=== PATIENT | female | born 1995 | race Caucasian/White ===

== ENCOUNTER 2019-10-23 14:42 | Inpatient (IN) | payer OTHER ==
[2019-10-23] MEDS ORDERED: Nalbuphine 10 MG/ML Syringe IVPUSH PRN (20:15)
[2019-10-23] MEDS ORDERED: Sodium Chloride 0.9% 10 ML Syringe FLUSH PRN (20:15)
[2019-10-23] MEDS: Misoprostol 25 MCG (1/4 of 100 MCG) Tab VAG SCH (20:41)
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
[2019-10-24] MEDS: Misoprostol 25 MCG (1/4 of 100 MCG) Tab VAG SCH ×2 (00:36→04:56)
[2019-10-24] MEDS ORDERED: diphenhydrAMINE 50 MG/ML SDV IVPUSH PRN ×4 (01:59→18:31)
[2019-10-24] MEDS ORDERED: ePHEDrine 50 MG/ML SDV IVPUSH PRN ×3 (01:59→18:31)
[2019-10-24] MEDS ORDERED: Bupivacaine/fentaNYL/NS 100 ML Bag EPIDUR PRN ×2 (01:59→13:25)
[2019-10-24] MEDS ORDERED: fentaNYL 100 MCG/2 ML SDV EPIDUR PRN ×2 (01:59→12:47)
[2019-10-24] MEDS ORDERED: Misoprostol 25 MCG (1/4 of 100 MCG) Tab ONE (04:32)
[2019-10-24] MEDS: Lactated Ringers 1,000 ML IV SCH ×4 (04:48→13:46)
--- NOTE | 2019-10-24 04:56 | PCM.SN ---
- Free Text/Narrative Note: Cervix 1 cm, 40% effaced, soft, posterior. Vertex -3. Cytotec 50 g placed close to cervical os. Category 1 heart rate. BP 145/82
--- NOTE | 2019-10-24 08:20 | PCM.SN ---
- Free Text/Narrative Note: Cervix is 1 cm dilated and 40% effaced soft posterior vertex presentation minus 2 station, category 1 heart rate. Tucker catheter placed into the cervical os and 55 mL of fluid instilled into the bulb. Gentle traction applied and taped to the thigh. Patient will now be started on Pitocin solution for augmentation of labor.
[2019-10-24] MEDS ORDERED: Oxytocin/Lactated Ringers 20 UNIT/1,000 ML BAG IV SCH (08:30)
--- NOTE | 2019-10-24 11:43 | PCM.SN ---
- Free Text/Narrative Note: Tucker catheter dislodged from cervix. Cervix is 2 cm, 50% effaced, soft, posterior. Amniotomy perfomred at 1135 clear fluid. UAC placed without difficulty. Continue augmentation. Patient considering epidural.
[2019-10-24] MEDS ORDERED: fentaNYL/Bupivacaine/NS 2 MCG-0.125% 250 ML EPIDUR PRN (12:47)
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
[2019-10-24] MEDS ORDERED: Citric Acid/Sodium Citrate Solution 30 ML Cup ONE (14:06)
[2019-10-24] MEDS ORDERED: Metoclopramide 10 MG/2 ML SDV ONE (14:07)
[2019-10-24] MEDS ORDERED: Bupivacaine 0.5% 30 ML SDV ONE (14:14)
[2019-10-24] MEDS ORDERED: Morphine PF 10 MG/10 ML SDV ONE (14:14)
[2019-10-24] MEDS ORDERED: Oxytocin 10 Units/1 ML SDV ONE (14:15)
[2019-10-24] MEDS ORDERED: ceFAZolin 1 GM Vial ONE ×2 (14:37)
[2019-10-24] MEDS ORDERED: Azithromycin 500 MG Vial ONE (14:39)
[2019-10-24] MEDS ORDERED: Sodium Chloride 0.9% 100 ML ONE (14:40)
[2019-10-24] MEDS ORDERED: Ondansetron 4 MG/2 ML SDV ONE (14:50)
[2019-10-24] MEDS ORDERED: Phenylephrine/Normal Saline 100 MCG/ML 10 ML Syringe ONE (15:09)
[2019-10-24] MEDS ORDERED: Lactated Ringers 1,000 ML ONE (15:16)
--- NOTE | 2019-10-24 15:34 | PCM.POSTAN ---
POST ANESTHESIA ASSESSMENT - MENTAL STATUS Mental Status: Alert - VITAL SIGNS Vital Signs: Last Vital Signs 1516 126/87 95 RA 101 19 98.2 Temp 37.1 C 10/23/19 20:15 Pulse 113 H 10/23/19 20:15 Resp 16 10/23/19 20:15 BP 140/96 H 10/23/19 20:15 Pulse Ox 99 10/23/19 20:15 - RESPIRATORY Respiratory Status: Respiratory Rate WNL, Airway Patent, O2 Saturation Stable - CARDIOVASCULAR CV Status: Pulse Rate WNL, Blood Pressure Stable - GASTROINTESTINAL GI Status: No Symptoms - POST OP HYDRATION Hydration Status: Adequate & Stable
[2019-10-24] MEDS ORDERED: Ondansetron 4 MG/2 ML SDV IVPUSH PRN (15:37)
--- NOTE | 2019-10-24 15:43 | PCM.OPNOTE ---
- General Post-Op/Procedure Note Date of Surgery/Procedure: 10/24/19 Operative Procedure(s): Primary low segment transverse 2 layer closure of the uterus Pre Op Diagnosis: 38 weeks plus gestation, preeclampsia, nonreassuring heart rate, intolerance of labor. Post-Op Diagnosis: Same Anesthesia Technique: Epidural Primary Surgeon: Keith Vu Secondary Surgeon: Irineo Delgadillo Anesthesia Provider: Kimmie Rodriguez Card Grader: William Mary (PAS) Card Grader: Eugenio Avila (asst REPULPING SUPERVISOR) Reason Card Grader Was Necessary: Assist in surgery, retraction, decrease comorbidity and mortality. Role of Card Grader: Assist in surgery, retraction, decrease comorbidity and mortality. Fluid Replacement, Intraop: 800 Output, Urine Amount: 25 EBL in mLs: 750 Drain/Tube Comments:: Tucker Complications: None Condition: Good Free Text/Narrative:: Intake & Output 10/24/19 10/24/19 10/24/19 06:59 14:59 22:59 Intake Total 0 Balance 2120 I was called to evaluate patient at 1355 hrs. Arrived in labor and delivery 1406 hrs. Evaluated patient and reviewed heart tones checked cervix and decision was made to proceed with section at 1413 hrs. Patient was transported to the operating room and placed under epidural anesthesia in the supine position with a wedge under the right hip right flank. She received 2 g of Ancef intravenously as well as azithromycin 500 mg IV [address]s in place and functioning prior surgery. Timeout performed. Prepared and draped in a sterile fashion. Adequate level of anesthesia was confirmed patient's was brought to the operating room. Pfannenstiel incision made and carried sharp section to into the anterior fascia peritoneal cavity was entered without difficulty. Bladder flap created pushed caudad. Low segment transverse C- section performed. Male liveborn delivered at 1442 hrs. (29 minutes) Apgars 6/8 weight 3080 g 6 lbs. 13 oz. web software engineer in attendance. Cord blood gases were obtained. Arterial values pH 7.19 CO2 61.6 PO2 12 venous blood gases pH 7.25 mL of 248.4 PO2 of 20. Cord blood was collected from three-vessel cord and placenta was removed manually. The endometrial cavity was inspected. Sponge needle pack asthma count correct times one the uterine incision closed in 2 layers. First layer running locking suture of 0 Monocryl. Second layer horizontal imbricating suture. Additional [id number] at the midportion of the incision and the left angle of the incision for hemostasis. Both tubes and ovaries were normal. Clots were cleaned from the gutters and cul-de-sac uterus placed into the abdominal cavity. Uterine incision reinspected no bleeding. Sponge needle pack asthma sharp count correct 2 and abdominal cavity was closed with #1 PDS for the anterior fascia irrigation was carried out and subcutaneous tissue with saline and 3 interrupted sutures were utilized to approximate the subcutaneous tissue. The skin was closed with Harshad needle 3-0 Monocryl subcuticular suture. Dermabond Preneo applied. Clots were cleaned from the vagina at the end procedure. Patient was transported postanesthesia care unit in satisfactory condition. The blood transfusions were required during surgery not anticipated unless her condition should change.
[2019-10-24] MEDS ORDERED: Witch Hazel Medicated Pads 40/Jar TOP PRN (18:31)
[2019-10-24] MEDS ORDERED: Sodium Chloride 0.9% 10 ML Syringe FLUSH PRN (18:31)
[2019-10-24] MEDS ORDERED: Dextrose 5%-Lactated Ringers 1,000 ML IV SCH (18:31)
[2019-10-24] MEDS ORDERED: Naloxone 0.4 MG/ML SDV IVPUSH PRN (18:31)
[2019-10-24] MEDS ORDERED: Acetaminophen 325 MG Tab PO PRN (18:31)
[2019-10-24] MEDS ORDERED: Ondansetron 4 MG/2 ML SDV IV PRN (18:31)
[2019-10-24] MEDS ORDERED: Acetaminophen/oxyCODONE 325-5 MG Tab PO PRN ×2 (18:31)
[2019-10-24] MEDS: Simethicone 80 MG Tab.Chew PO SCH ×2 (19:54→23:27)
[2019-10-24] MEDS: Ibuprofen 600 MG Tab PO PRN (19:54)
[2019-10-25] MEDS: Ibuprofen 600 MG Tab PO PRN ×3 (05:05→17:52)
--- NOTE | 2019-10-25 07:07 | PCM48HPAN ---
Post Anesthesia Note - EVALUATION WITHIN 48HRS OF ANESTHETIC Vital Signs in Normal Range: Yes Patient Participated in Evaluation: Yes Respiratory Function Stable: Yes Airway Patent: Yes Cardiovascular Function Stable: Yes Hydration Status Stable: Yes Pain Control Satisfactory: Yes Nausea and Vomiting Control Satisfactory: Yes Mental Status Recovered: Yes Vital Signs: Last Vital Signs Temp 36.8 C 10/25/19 05:00 Pulse 102 H 10/25/19 05:00 Resp 16 10/25/19 05:00 BP 138/45 L 10/25/19 05:00 Pulse Ox 94 L 10/25/19 05:00
--- NOTE | 2019-10-25 08:26 | PCM.SN ---
- Free Text/Narrative Note: Blood pressure 109/67 when seen on rounds. Chest is clear. Uterus is involuting normally. Incision appears normal. No heavy vaginal bleeding. No leg cramping. Patient has ambulated without difficulty. Tucker remains in at present time with 200 mL of output since about 5:00 this morning. She is stable and doing well. Repeat CBC in a.m. drop in hemoglobin noted from preop'd postop status. She is asymptomatic we will withhold blood transfusion for now.
[2019-10-25] MEDS: buPROPion 150 MG Tab.ER PO SCH (11:42)
[2019-10-25] MEDS: Simethicone 80 MG Tab.Chew PO SCH ×4 (11:42→17:51)
[2019-10-25] MEDS: Pantoprazole 40 MG Tab.CR PO SCH (11:43)
[2019-10-25] MEDS: Docusate Sodium 100 MG Cap PO PRN (17:51)
[2019-10-26] MEDS: Ibuprofen 600 MG Tab PO PRN ×3 (01:14→12:53)
[2019-10-26] MEDS: Simethicone 80 MG Tab.Chew PO SCH ×3 (01:21→12:52)
[2019-10-26] MEDS: Pantoprazole 40 MG Tab.CR PO SCH (07:56)
[2019-10-26] MEDS: Docusate Sodium 100 MG Cap PO PRN (08:25)
[2019-10-26] MEDS: buPROPion 150 MG Tab.ER PO SCH (08:25)
--- NOTE | 2019-10-26 08:25 | PCM.DCSUM1 ---
Discharge Summary - Hospital Course Free Text/Narrative:: [facility] Post-Op/Procedure Note Patient Name: MICK MOYA Date of : 89 Patient Status: Inpatient Attending Provider: Keith Vu Date: 10/24/19 15:35 Initialization Date: 10/24/19 15:35 - General Post-Op/Procedure Note Date of Surgery/Procedure: 10/24/19 Operative Procedure(s): Primary low segment transverse 2 layer closure of the uterus Pre Op Diagnosis: 38 weeks plus gestation, preeclampsia, nonreassuring heart rate, intolerance of labor. Post-Op Diagnosis: Same Anesthesia Technique: Epidural Primary Surgeon: Keith Vu Secondary Surgeon: Irineo Delgadillo Anesthesia Provider: Kimmie Rodriguez Trench Digger Helper: William Mary (PAS) Trench Digger Helper: Eugenio Avila (asst CHILD CARE CENTRE MANAGER) Reason Trench Digger Helper Was Necessary: Assist in surgery, retraction, decrease comorbidity and mortality. Role of Trench Digger Helper: Assist in surgery, retraction, decrease comorbidity and mortality. Fluid Replacement, Intraop: 800 Output, Urine Amount: 25 EBL in mLs: 750 Drain/Tube Comments:: Tucker Complications: None Condition: Good Free Text/Narrative:: Intake & Output 10/24/19 10/24/19 10/24/19 06:59 14:59 22:59 Intake Total 2120 Balance 2120 I was called to evaluate patient at 1355 hrs. Arrived in labor and delivery 1406 hrs. Evaluated patient and reviewed heart tones checked cervix and decision was made to proceed with section at 1413 hrs. Patient was transported to the operating room and placed under epidural anesthesia in the supine position with a wedge under the right hip right flank. She received 2 g of Ancef intravenously as well as azithromycin 500 mg IV S[address]s in place and functioning prior surgery. Timeout performed. Prepared and draped in a sterile fashion. Adequate level of anesthesia was confirmed patient's was brought to the operating room. Pfannenstiel incision made and carried sharp section to into the anterior fascia peritoneal cavity was entered without difficulty. Bladder flap created pushed caudad. Low segment transverse C- section performed. Male liveborn delivered at 1442 hrs. (29 minutes) Apgars 6/8 weight 3080 g 6 lbs. 13 oz. 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 Cord blood gases were obtained. Arterial values pH 7.19 CO2 61.6 PO2 12 venous blood gases pH 7.25 mL of 248.4 PO2 of 20. Cord blood was collected from three-vessel cord and placenta was removed manually. The endometrial cavity was inspected. Sponge needle pack asthma count correct times one the uterine incision closed in 2 layers. First layer running locking suture of 0 Monocryl. Second layer horizontal imbricating suture. Additional [id number] at the midportion of the incision and the left angle of the incision for hemostasis. Both tubes and ovaries were normal. Clots were cleaned from the gutters and cul-de-sac uterus placed into the abdominal cavity. Uterine incision reinspected no bleeding. Sponge needle pack asthma sharp count correct 2 and abdominal cavity was closed with #1 PDS for the anterior fascia irrigation was carried out and subcutaneous tissue with saline and 3 interrupted sutures were utilized to approximate the subcutaneous tissue. The skin was closed with Harshad needle 3-0 Monocryl subcuticular suture. Dermabond Preneo applied. Clots were cleaned from the vagina at the end procedure. Patient was transported postanesthesia care unit in satisfactory condition. The blood transfusions were required during surgery not anticipated unless her condition should change. HPI Initial Comments: [facility] Post-Op/Procedure Note Patient Name: MICK MOYA Date of : 89 Patient Status: Inpatient Attending Provider: Keith Vu Date: 10/24/19 15:35 Initialization Date: 10/24/19 15:35 - General Post-Op/Procedure Note Date of Surgery/Procedure: 10/24/19 Operative Procedure(s): Primary low segment transverse 2 layer closure of the uterus Pre Op Diagnosis: 38 weeks plus gestation, preeclampsia, nonreassuring heart rate, intolerance of labor. Post-Op Diagnosis: Same Anesthesia Technique: Epidural Primary Surgeon: Keith Vu Secondary Surgeon: Irineo Delgadillo Anesthesia Provider: Kimmie Rodriguez Trench Digger Helper: William Mary (PAS) Trench Digger Helper: Eugenio Avila (asst CHILD CARE CENTRE MANAGER) Reason Trench Digger Helper Was Necessary: Assist in surgery, retraction, decrease comorbidity and mortality. Role of Trench Digger Helper: Assist in surgery, retraction, decrease comorbidity and mortality. Fluid Replacement, Intraop: 800 Output, Urine Amount: 25 EBL in mLs: 750 Drain/Tube Comments:: Tucker Complications: None Condition: Good Free Text/Narrative:: Intake & Output 10/24/19 10/24/19 10/24/19 06:59 14:59 22:59 Intake Total 0 Balance 2119 I was called to evaluate patient at 1355 hrs. Arrived in labor and delivery 1406 hrs. Evaluated patient and reviewed heart tones checked cervix and decision was made to proceed with section at 1413 hrs. Patient was transported to the operating room and placed under epidural anesthesia in the supine position with a wedge under the right hip right flank. She received 2 g of Ancef intravenously as well as azithromycin 500 mg IV SCDs in place and functioning prior surgery. Timeout performed. Prepared and draped in a sterile fashion. Adequate level of anesthesia was confirmed patient's was brought to the operating room. Pfannenstiel incision made and carried sharp section to into the anterior fascia peritoneal cavity was entered without difficulty. Bladder flap created pushed caudad. Low segment transverse C- section performed. Male liveborn delivered at 1442 hrs. (29 minutes) Apgars 6/8 weight 3080 g 6 lbs. 13 oz. 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 Cord blood gases were obtained. Arterial values pH 7.19 CO2 61.6 PO2 12 venous blood gases pH 7.25 mL of 248.4 PO2 of 20. Cord blood was collected from three-vessel cord and placenta was removed manually. The endometrial cavity was inspected. Sponge needle pack asthma count correct times one the uterine incision closed in 2 layers. First layer running locking suture of 0 Monocryl. Second layer horizontal imbricating suture. Additional [id number] at the midportion of the incision and the left angle of the incision for hemostasis. Both tubes and ovaries were normal. Clots were cleaned from the gutters and cul-de-sac uterus placed into the abdominal cavity. Uterine incision reinspected no bleeding. Sponge needle pack asthma sharp count correct 2 and abdominal cavity was closed with #1 PDS for the anterior fascia irrigation was carried out and subcutaneous tissue with saline and 3 interrupted sutures were utilized to approximate the subcutaneous tissue. The skin was closed with Harshad needle 3-0 Monocryl subcuticular suture. Dermabond Preneo applied. Clots were cleaned from the vagina at the end procedure. Patient was transported postanesthesia care unit in satisfactory condition. The blood transfusions were required during surgery not anticipated unless her condition should change. Brief History: [facility] . Post-Op/Procedure Note. [facility] Record Number: [id number]. Date of : Patient Status: Inpatient. Attending Provider: Keith Vuount Number: [id number]. Date: 10/24/19 15:35Initialization Date: 10/24/19 15:35. - General Post-Op/Procedure Note. Date of Surgery/Procedure: 10/24/19. Operative Procedure(s): Primary low segment transverse 2 layer closure of the uterus. Pre Op Diagnosis: 38 weeks plus gestation, preeclampsia , nonreassuring heart rate, intolerance of labor. Post-Op Diagnosis : Same. Anesthesia Technique: Epidural. Primary Surgeon: Keith Vu. Secondary Surgeon: Irineo Delgadillo. Anesthesia Provider: Kimmie Rodriguez. Trench Digger Helper: William Mary (PAS). Trench Digger Helper: Eugenio Avila (asst CHILD CARE CENTRE MANAGER). Reason Trench Digger Helper Was Necessary: Assist in surgery, retraction, decrease comorbidity and mortality. Role of Trench Digger Helper: Assist in surgery, retraction, decrease comorbidity and mortality. Fluid Replacement, Intraop: 800. Output, Urine Amount: 25. EBL in mLs: 750. Drain/Tube Comments:: Tucker. Complications: None. Condition: Good. Free Text/Narrative:: Intake & Output. 10/24/2000// . 06:[id number]:[id number]. Intake [id number]. [id number]. I was called to evaluate patient at 1355 hrs. Arrived in labor and delivery 1406 hrs. Evaluated patient and reviewed heart tones checked cervix and decision was made to proceed with section at 1413 hrs. Patient was transported to the operating room and placed under epidural anesthesia in the supine position with a wedge under the right hip right flank. She received 2 g of Ancef intravenously as well as azithromycin 500 mg IV SCDs in place and functioning prior surgery. Timeout performed. Prepared and draped in a sterile fashion. Adequate level of anesthesia was confirmed patient's was brought to the operating room. Pfannenstiel incision made and carried sharp section to into the anterior fascia peritoneal cavity was entered without difficulty. Bladder flap created pushed caudad. Low segment transverse performed. Male liveborn delivered at 1442 hrs. (29 minutes) Apgars 6/8 weight 3080 g 6 lbs. 13 oz. 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 Cord blood gases were obtained. Arterial values pH 7.19 CO2 61.6 PO2 12 venous blood gases pH 7.25 mL of 248.4 PO2 of 20. Cord blood was collected from three-vessel cord and placenta was removed manually. The endometrial cavity was inspected. Sponge needle pack asthma count correct times one the uterine incision closed in 2 layers. First layer running locking suture of 0 Monocryl. Second layer horizontal imbricating suture. Additional [id number] at the midportion of the incision and the left angle of the incision for hemostasis. Both tubes and ovaries were normal. Clots were cleaned from the gutters and cul-de-sac uterus placed into the abdominal cavity. Uterine incision reinspected no bleeding. Sponge needle pack asthma sharp count correct 2 and abdominal cavity was closed with #1 PDS for the anterior fascia irrigation was carried out and subcutaneous tissue with saline and 3 interrupted sutures were utilized to approximate the subcutaneous tissue. The skin was closed with Harshad needle 3-0 Monocryl subcuticular suture. Dermabond Preneo applied. Clots were cleaned from the vagina at the end procedure. Patient was transported postanesthesia care unit in satisfactory condition. The blood transfusions were required during surgery not anticipated unless her condition should change. Diagnosis: Stroke: No - Discharge Data Discharge Date: 10/26/19 Discharge Disposition: Home, Self-Care 01 Condition: Good - Referral to Home Health Primary Care Physician: Keith Vu MD - Discharge Diagnosis/Problem(s) (1) 38 weeks gestation of SNOMED Code(s): 58234151 ICD Code: Z3A.38 - 38 WEEKS GESTATION OF Status: Acute Current Visit: Yes (2) Preeclampsia SNOMED Code(s): 570081720 ICD Code: O14.90 - UNSPECIFIED PRE-ECLAMPSIA, UNSPECIFIED TRIMESTER Status : Acute Current Visit: Yes Qualifiers: Trimester: third trimester Qualified Code(s): O14.93 - Unspecified pre- eclampsia, third trimester (3) Anemia, SNOMED Code(s): 010209533 ICD Code: O90.81 - ANEMIA OF THE PUERPERIUM Status: Acute Current Visit: Yes (4) Non-reassuring electronic monitoring tracing SNOMED Code(s): 684641515 ICD Code: O36.8390 - MATERN CARE FOR ABNLT FETL HRT RATE OR RHYM, UNSP TRI, UNSP Status: Acute Current Visit: Yes (5) intolerance to labor, delivered, current hospitalization SNOMED Code(s): 882333805, 144236541 ICD Code: O77.9 - LABOR AND DELIVERY COMPLICATED BY STRESS, UNSPECIFIED Status: Acute Current Visit: Yes - Patient Summary/Data Operative Procedure(s) Performed: Primary low segment transverse 2 layer closure of the uterus Complications: Anemia Will treat with vitamins and iron and vitamin C Consults: None Hospital Course: Uneventful - Patient Instructions Diet: Usual Diet as Tolerated Driving: Do Not Drive (2 weeks) Showering/Bathing: May Shower, No Tub Bathing/Swimming (6 weeks) Wound/Incision Care: Keep Operative Site/Wound Site Clean and Dry Notify Provider of: Fever, Increased Pain, Swelling and Redness, Drainage, Nausea and/or Vomiting - Discharge Plan *PRESCRIPTION DRUG MONITORING PROGRAM REVIEWED*: Not Applicable *COPY OF PRESCRIPTION DRUG MONITORING REPORT IN PATIENT PREET: Not Applicable Prescriptions/Med Rec: Iron,Carbonyl/Ascorbic Acid [Iron 100-Vitamin C Tablet] 1 each PO TID 2 Days # 100 tablet Home Medications: Home Meds [id number]/Iron Fumarate/FA/DSS [ 19 Tablet] 1 tab PO DAILY 10/23/19 [ History] Acetaminophen [Tylenol] 650 mg PO Q6H PRN tablet 10/26/19 [Rx] Docusate Sodium [Colace] 100 mg PO Q12H PRN cap 10/26/19 [Rx] Ibuprofen [Motrin] 600 mg PO Q6H PRN tablet 10/26/19 [Rx] Iron,Carbonyl/Ascorbic Acid [Iron 100-Vitamin C Tablet] 1 each PO TID 2 Days # 100 tablet 10/26/19 [Rx] Simethicone 80 mg PO PCBED tab.chew 10/26/19 [Rx] Referrals: Keith Vu MD [Primary Care Provider] - (She has an appointment to see me in 2 weeks) - Discharge Summary/Plan Comment DC Time >30 min.: No - Patient Data Vitals - Most Recent: Last Vital Signs Temp 98.1 F 10/26/19 03:54 Pulse 118 H 10/26/19 03:54 Resp 18 10/26/19 03:54 BP 124/72 10/26/19 03:54 Pulse Ox 96 10/26/19 03:54 Weight - Most Recent: 221 lb 9 oz I&O - Last 24 hours: Intake & Output 10/25/19 10/26/19 10/26/19 22:59 06:59 14:59 Output Total 700 Balance -700 Lab Results - Last 24 hrs: Laboratory Results - last 24 hr 10/26/19 Range/Units 05:03 WBC 11.60 H (3.98-10.04) K/mm3 RBC 3.24 L (3.98-5.22) M/mm3 Hgb 8.2 L (11.2-15.7) gm/dl Hct 27.3 L (34.1-44.9) % MCV 84.3 (79.4-94.8) fl MCH 25.3 L (25.6-32.2) pg MCHC 30.0 L (32.2-35.5) g/dl RDW Std Deviation 50.4 H (36.4-46.3) fL Plt Count 204 (182-369) K/mm3 MPV 11.6 (9.4-12.3) fl Neut % (Auto) 69.6 (34.0-71.1) % Lymph % (Auto) 20.9 (19.3-51.7) % Bradford % (Auto) 7.1 (4.7-12.5) % Eos % (Auto) 1.5 (0.7-5.8) Baso % (Auto) 0.3 (0.1-1.2) % Neut # (Auto) 8.08 H (1.56-6.13) K/mm3 Lymph # (Auto) 2.43 (1.18-3.74) K/mm3 Bradford # (Auto) 0.82 H (0.24-0.36) K/mm3 Eos # (Auto) 0.17 (0.04-0.36) K/mm3 Baso # (Auto) 0.03 (0.01-0.08) K/mm3 Med Orders - Current: Current Medications Acetaminophen (Tylenol) 650 mg PO Q4H PRN PRN Reason: mild pain or fever Last Admin: 10/25/19 23:05 Dose: 650 mg Bupropion HCl (Wellbutrin Xl) 150 mg PO DAILY [facility] Last Admin: 10/25/19 11:42 Dose: 150 mg Diphenhydramine HCl (Benadryl) 25 mg IVPUSH Q6H PRN PRN Reason: Itching or Nausea Docusate Sodium (Colace) 100 mg PO Q12H PRN PRN Reason: Constipation Last Admin: 10/25/19 17:51 Dose: 100 mg Ephedrine Sulfate (Ephedrine Sulfate) 5 mg IVPUSH SEECOMMENT PRN PRN Reason: Other Ibuprofen (Motrin) 600 mg PO Q6H PRN PRN Reason: mild pain or fever Last Admin: 10/26/19 07:23 Dose: 600 mg Naloxone HCl (Narcan) 0.1 mg IVPUSH SEECOMMENT PRN PRN Reason: Respiratory Depression Ondansetron HCl (Zofran) 4 mg IV Q8H PRN PRN Reason: Nausea/Vomiting Oxycodone/Acetaminophen (Percocet 325-5 Mg) 1 tab PO Q4H PRN PRN Reason: Pain (moderate 4-6) Oxycodone/Acetaminophen (Percocet 325-5 Mg) 2 tab PO Q4H PRN PRN Reason: Pain (severe 7-10) Pantoprazole Sodium (Protonix) 40 mg PO DAILY@0730 [facility] Last Admin: 10/26/19 07:56 Dose: 40 mg Simethicone (Simethicone) 80 mg PO PCBED [facility] Last Admin: 10/26/19 01:21 Dose: Not Given Sodium Chloride (Saline Flush) 10 ml FLUSH ASDIRECTED PRN PRN Reason: Keep Vein Open Witch Lizette (Tucks) 1 pad TOP ASDIRECTED PRN PRN Reason: Perineal Comfort Measure Discontinued Medications Azithromycin (Zithromax) Confirm Administered Dose 500 mg .ROUTE .STK-MED ONE Stop: 10/24/19 14:40 Bupivacaine HCl (Marcaine 0.5%) Confirm Administered Dose 30 ml .ROUTE .STK-MED ONE Stop: 10/24/19 14:15 Last Admin: 10/24/19 14:39 Dose: 20 ml Cefazolin Sodium (Ancef) Confirm Administered Dose 1 gm .ROUTE .[facility]-MED ONE Stop: 10/24/19 14:38 Cefazolin Sodium (Ancef) Confirm Administered Dose 1 gm .ROUTE .[facility] ONE Stop: 10/24/19 14:38 Citric Acid/Sodium Citrate (Bicitra Solution) Confirm Administered Dose 30 ml .ROUTE .[facility] ONE Stop: 10/24/19 14:07 Last Admin: 10/24/19 14:18 Dose: 30 ml Diphenhydramine HCl (Benadryl) 25 mg IVPUSH Q6H PRN PRN Reason: Itching Diphenhydramine HCl (Benadryl) 25 mg IVPUSH Q6H PRN PRN Reason: pruritis Diphenhydramine HCl (Benadryl) 25 mg IVPUSH Q6H PRN PRN Reason: pruritis Ephedrine Sulfate (Ephedrine Sulfate) 5 mg IVPUSH ASDIRECTED PRN PRN Reason: HYPOTENTSION Ephedrine Sulfate (Ephedrine Sulfate) 5 mg IVPUSH ASDIRECTED PRN PRN Reason: Hypotension Fentanyl (Sublimaze) 100 mcg EPIDUR Q3H PRN PRN Reason: Pain Fentanyl (Sublimaze) 100 mcg EPIDUR Q3H PRN PRN Reason: Pain Last Admin: 10/24/19 13:04 Dose: 100 mcg Fentanyl/Bupivacaine HCl (Fentanyl/Bupivacaine/Ns 2 Mcg-0.125% 100 Ml) 100 ml EPIDUR CONTINUOUS PRN PRN Reason: Pain Fentanyl/Bupivacaine HCl (Fentanyl/Bupivacaine/Ns 2 Mcg-0.125% 250 Ml) 250 ml EPIDUR CONTINUOUS PRN PRN Reason: Pain Fentanyl/Bupivacaine HCl (Fentanyl/Bupivacaine/Ns 2 Mcg-0.125% 100 Ml) 100 ml EPIDUR CONTINUOUS PRN PRN Reason: Pain Last Admin: 10/24/19 13:47 Dose: 100 ml Lactated Ringer's (Ringers, Lactated) 1,000 mls @ 100 mls/hr IV ASDIRECTED FAITH Last Admin: 10/24/19 13:46 Dose: 100 mls/hr Oxytocin/Lactated Ringer's (Pitocin In Lr 20 Units/1,000 Ml) 20 unit in 1,000 mls @ 6 mls/hr IV TITRATE FAITH; Protocol Last Admin: 10/24/19 08:44 Dose: 6 mls/hr Sodium Chloride (Normal Saline) Confirm Administered Dose 100 mls @ as directed .ROUTE .[facility]-MED ONE Stop: 10/24/19 14:41 Lactated Ringer's (Ringers, Lactated) Confirm Administered Dose 1,000 mls @ as directed .ROUTE .[facility]-MED ONE Stop: 10/24/19 15:17 Dextrose/Lactated Ringer's (Dextrose 5%-Lactated Ringers) 1,000 mls @ 125 mls/ hr IV ASDIRECTED FAITH Stop: 10/25/19 02:30 Last Admin: 10/24/19 18:50 Dose: 125 mls/hr Metoclopramide HCl (Reglan) Confirm Administered Dose 10 mg .ROUTE .ST-MED ONE Stop: 10/24/19 14:08 Last Admin: 10/24/19 14:18 Dose: 10 mg Misoprostol (Cytotec) 50 mcg VAG Q4HR [facility] Stop: 10/24/19 01:01 Last Admin: 10/24/19 04:56 Dose: 50 mcg Misoprostol (Cytotec) Confirm Administered Dose 50 mcg .ROUTE .[facility] ONE Stop: 10/24/19 04:33 Last Admin: 10/24/19 08:26 Dose: Not Given Morphine Sulfate (Duramorph Pf) Confirm Administered Dose 10 mg .ROUTE .[facility]-MED ONE Stop: 10/24/19 14:15 Nalbuphine HCl (Nubain) 10 mg IVPUSH Q2H PRN PRN Reason: Pain Last Admin: 10/24/19 05:40 Dose: 10 mg Ondansetron HCl (Zofran) Confirm Administered Dose 4 mg .ROUTE .ST-MED ONE Stop: 10/24/19 14:51 Ondansetron HCl (Zofran) 4 mg IVPUSH ONETIME PRN PRN Reason: Nausea/Vomiting Oxytocin (Pitocin) Confirm Administered Dose 20 unit .ROUTE .STK-MED ONE Stop: 10/24/19 14:16 Phenylephrine HCl (Phenylephrine In Ns 100 Mcg/Ml) Confirm Administered Dose 1 mg .ROUTE .ST-MED ONE Stop: 10/24/19 15:10 Sodium Chloride (Saline Flush) 10 ml FLUSH ASDIRECTED PRN PRN Reason: Keep Vein Open
== END 2019-10-26 13:15 | disposition home or self-care (01) | DRG 787 ==
LOC: JD.OB 14:42 → OBSVTOIN 10-24 14:42 → JD.OB 10-24 14:50
PROVIDERS: ADMIT Obstetrics & Gynecology; ATTEND Obstetrics & Gynecology
PROC: 10D00Z1 Extraction of Products of Conception, Low, Open Approach (ICD-10-PCS; principal; 2019-10-24)
PROC: 10907ZC Drainage of Amniotic Fluid, Therapeutic from Products of Conception, Via Natural or Artificial Opening (ICD-10-PCS; 2019-10-24)
PROC: 3E0P7VZ Introduction of Hormone into Female Reproductive, Via Natural or Artificial Opening (ICD-10-PCS; 2019-10-24)
DX: O14.94 Unspecified pre-eclampsia, complicating childbirth (principal); D62 Acute posthemorrhagic anemia; O76 Abnormality in fetal heart rate and rhythm complicating labor and delivery; Z3A.38 38 weeks gestation of pregnancy; Z37.0 Single live birth; Z79.899 Other long term (current) drug therapy; O90.81 Anemia of the puerperium
CPT/HCPCS: 01967; 01968; 36415; 51702; 59025; 59200; 82565; 82570; 83615; 84156; 84450; 84460; 84520; 84550; 85025; 86592; 86850; 86900; 86901; A9270-GY; J0456; J0690; J2270; J2300; J2370; J2405; J2590; J2765; J3010; J3490; J7050; J7120; J7121

== ENCOUNTER 2021-05-07 16:47 | Emergency (ER) | payer BC ==
--- NOTE | 2021-05-07 17:42 | EDM.PDOC ---
ED HPI GENERAL MEDICAL PROBLEM - General Chief Complaint: Cardiovascular Problem Stated Complaint: SOB/HEART PALPITATIONS Time Seen by Provider: 05/07/21 16:53 Source of Information: Reports: Patient History Limitations: Reports: No Limitations - History of Present Illness INITIAL COMMENTS - FREE TEXT/NARRATIVE: 26-year-old female presents the emergency department today with complaints of palpitations and shortness of breath x1 week. Per the patient's report she states that she has been having occasional shortness of breath and palpitations that started about a week ago however she contributed it to family stressors that started at that time. She sees an [facility] in [place] and was seen by her provider today who did a urine dipstick screen which she said was normal. Her provider then called [facility] Dr. Saleh who recommend she be evaluated in the emergency department. Of note, the patient is 27 weeks . She states on her last she was diagnosed with preeclampsia at 34 weeks so she is concerned regarding this. She has not had any recent fever, chills, nausea, vomiting or diarrhea. She does verbalize lower abdominal discomfort. She also verbalizes urinary frequency and scant amount of urine when voiding. She denies any burning with voiding. She also notes that she does have a significant history for anxiety for which she takes Zoloft and was most recently started on BuSpar about 2 weeks ago. She denies any chest pain, headache or upper respiratory symptoms. She states that her thus far has been healthy and she has had no complications. Chest Pain Score (Numeric/FACES): 4 - Related Data Allergies Allergy/AdvReac Type Severity Reaction Status Date / Time No Known Allergies Allergy Verified 05/07/21 17:00 Home Meds: Home Meds Prenat 115/Iron Fum/Folic/Dss [ 19 Tablet] 1 tab PO DAILY 10/23/19 [ History] Aspirin 81 mg PO DAILY 05/07/21 [History] Cetirizine [ZyrTEC] 10 mg PO DAILY 05/07/21 [History] Sertraline [Zoloft] 200 mg PO DAILY 05/07/21 [History] busPIRone [Buspar] 7.5 mg PO BID 05/07/21 [History] hydrOXYzine HCL [hydrOXYzine] 25 mg PO ASDIRECTED PRN 05/07/21 [History] Past Medical History Other Respiratory History: currrent stuffy nose 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 A baller tender arm fell across her chest and and pt states she had back aches in the past. - Past Surgical History HEENT Surgical History: Reports: ALAN Other HEENT Surgeries/Procedures: 2018 Female Surgical History: Reports: Section Social & Family History - Family History Family Medical History: No Pertinent Family History - Tobacco Use Tobacco Use Status *Q: Never Tobacco User Second Hand Smoke Exposure: No - Caffeine Use Caffeine Use: Reports: None - Recreational Drug Use Recreational Drug Use: No ED ROS GENERAL - Review of Systems Review Of Systems: Comprehensive ROS is negative, except as noted in HPI. ED EXAM, GENERAL - Physical Exam Exam: See Below Exam Limited By: No Limitations General Appearance: Alert, WD/WN, Anxious Eye Exam: Bilateral Eye: PERRL Ears: Normal External Exam, Hearing Grossly Normal Nose: Normal Inspection Throat/Mouth: Normal Inspection, Normal Lips, Normal Voice, No Airway Compromise Head: Atraumatic Neck: Normal Inspection, Supple Respiratory/Chest: No Respiratory Distress, Lungs Clear, Normal Breath Sounds, No Accessory Muscle Use, Chest Non-Tender Cardiovascular: Normal Peripheral Pulses, Regular Rate, Rhythm, No Edema, No Murmur Peripheral Pulses: 2+: Radial (L), Radial (R) GI/Abdominal: Normal Bowel Sounds, Soft, Non-Tender. No: No Distention #1 Interpretation EKG Date: 05/07/21 Time: 17:03 Rhythm: NSR Rate (Beats/Min): 96 [place]: Normal P-Wave: Present QRS: Normal ST-T: Normal QT: Normal EKG Interpretation Comments: Per Dr. Galarza interpretation: Sinus rhythm at 96 bpm; borderline short AR interval; borderline repolarization abnormality Course - Vital Signs Text/Narrative:: As stated above 26-year-old female who presents with intermittent palpitations and shortness of breath associated with palpitations. Patient states this has been going on for about a week now. Initially contributed to increased family stressors as she has received some news in the last week or so. At one point in time when she is sitting at work she states her resting heart rate was initially in the 130s and only came down to the 120s. I have ordered an EKG, troponin, CBC, CMP, magnesium level and a TSH level. Nursing will obtain heart tones. We will also obtain a urinalysis with micro and culture if indicated. Last Recorded V/S: Last Vital Signs Temp 97 F 05/07/21 16:57 Pulse 109 H 05/07/21 16:57 Resp 16 05/07/21 16:57 BP 129/81 05/07/21 16:57 Pulse Ox 99 05/07/21 16:57 - Orders/Labs/Meds Orders: Active Orders 24 hr Category Date Time Status EKG 12 Lead [EKG Documentation Completion] [RC] STAT Care 05/07/21 16:53 Active Labs: Laboratory Tests 05/07/21 05/07/21 05/07/21 Range/Units 17:33 17:33 17:37 WBC 13.12 H (3.98-10.04) K/mm3 RBC 4.38 (3.98-5.22) M/mm3 Hgb 10.9 L D (11.2-15.7) gm/dl Hct 34.5 (34.1-44.9) % MCV 78.8 L (79.4-94.8) fl MCH 24.9 L (25.6-32.2) pg MCHC 31.6 L (32.2-35.5) g/dl RDW Std Deviation 42.3 (36.4-46.3) fL Plt Count 333 (182-369) K/mm3 MPV 9.7 (9.4-12.3) fl Neut % (Auto) 65.3 (34.0-71.1) % Lymph % (Auto) 22.9 (19.3-51.7) % [place] % (Auto) 7.2 (4.7-12.5) % Eos % (Auto) 3.4 (0.7-5.8) Baso % (Auto) 0.4 (0.1-1.2) % Neut # (Auto) 8.57 H (1.56-6.13) K/mm3 Lymph # (Auto) 3.01 (1.18-3.74) K/mm3 [place] # (Auto) 0.94 H (0.24-0.36) K/mm3 Eos # (Auto) 0.45 H (0.04-0.36) K/mm3 Baso # (Auto) 0.05 (0.01-0.08) K/mm3 Manual Slide Review Abnormal smear Sodium 139 (136-145) mEq/L Potassium 3.8 (3.5-5.1) mEq/L Chloride 105 (98-107) mEq/L Carbon Dioxide 24 (21-32) mEq/L Anion Gap 13.8 (5-15) BUN 9 (7-18) mg/dL Creatinine 0.6 (0.55-1.02) mg/dL Est Cr Clr Drug Dosing 107.22 mL/min Estimated GFR (MDRD) > 60 (>60) mL/min BUN/Creatinine Ratio 15.0 (14-18) Glucose 81 (70-99) mg/dL Calcium 8.6 (8.5-10.1) mg/dL Magnesium 1.9 (1.8-2.4) mg/dL Total Bilirubin 0.2 (0.2-1.0) mg/dL AST 16 (15-37) U/L ALT 15 (14-59) U/L Alkaline Phosphatase 70 (46-116) U/L Troponin I < 0.017 (0.00-0.056) ng/mL Total Protein 6.8 (6.4-8.2) g/dl Albumin 2.6 L (3.4-5.0) g/dl Globulin 4.2 gm/dL Albumin/Globulin Ratio 0.6 L (1-2) TSH 3rd Generation 1.935 (0.358-3.74) uIU/mL Urine Color Yellow (Yellow) Urine Appearance Clear (Clear) Urine pH 7.0 (5.0-8.0) Ur Specific [place] 1.020 (1.005-1.030) Urine Protein Negative (Negative) Urine Glucose (UA) Negative (Negative) Urine Ketones Negative (Negative) Urine Occult Blood Negative (Negative) Urine Nitrite Negative (Negative) Urine Bilirubin Negative (Negative) Urine Urobilinogen 0.2 (0.2-1.0) Ur Leukocyte Esterase Negative (Negative) - Re-Assessments/Exams Free Text/Narrative Re-Assessment/Exam: 05/07/21 18:45 Hematology reveals a WBC of 13.12 ( normal eleva, tion for ), hemoglobin 10.9, hematocrit 34.5, platelet count 333 Chemistry is unremarkable, magnesium 1.9, TSH 1.935 Urinalysis is unremarkable I did reevaluate the patient and asked her if she has had any pain to her lower extremities that would suggest DVT patient does not describe it as pain however she states she has had weakness in her lower extremities. I have ordered bilateral Doppler ultrasound of lower extremities to rule out DVT. 05/07/21 19:40 Radiologist impression bilateral lower extremity deep venous ultrasound: 1. No findings of deep venous thrombosis are seen within either the right or the left lower extremities. 05/07/21 19:40 Patient will be discharged to home with recommendations that she follow-up with her regular doctor first thing next week. Departure - Departure Time of Disposition: 19:45 Disposition: Home, Self-Care 01 Condition: Good Clinical Impression: Palpitations Instructions: Palpitations, [id number] Referrals: Anshul Saleh MD [Primary Care Provider] - Forms: ED Department Discharge Additional Instructions: You were seen in the emergency department today with complaints of palpitations and shortness of breath for the last week. Labs, EKG and urinalysis were completed and these were all unremarkable. There is no sign of infection. There is no sign of anything wrong with your heart. Ultrasound was completed of your bilateral legs to rule out blood clots and this was negative as well. Recommend that you go home and rest for the weekend. Drink plenty of fluids. Stop drinking caffeine. Follow-up with your regular doctor first thing next week. Should your condition worsen or change, do not hesitate returning to the emergency department. Sepsis Event Note (ED) - Evaluation Sepsis Screening Result: No Definite Risk - Focused Exam Vital Signs: Vital Signs Temp Pulse Resp BP Pulse Ox 05/07/21 16:57 97 F 109 H 16 129/81 99 - My Orders Last 24 Hours: My Active Orders 05/07/21 16:53 EKG 12 Lead [EKG Documentation Completion] [RC] STAT - Assessment/Plan Last 24 Hours: My Active Orders 05/07/21 16:53 EKG 12 Lead [EKG Documentation Completion] [RC] STAT
--- NOTE | 2021-05-07 19:38 | US ---
Bilateral lower extremity deep venous ultrasound: Duplex and color Doppler evaluation was obtained of the right and left common femoral, proximal greater saphenous, superficial femoral, popliteal, posterior tibial and peroneal veins. Comparison: No previous venous imaging is available. Findings: Normal phasic flow, augmentation and compression is seen. Impression: 1. No findings of deep venous thrombosis are seen within either the right or left lower extremities. Diagnostic code #1
== END 2021-05-07 20:03 | disposition home or self-care (01) ==
LOC: JD.ED 16:47
DX: O99.891 Other specified diseases and conditions complicating pregnancy (principal); R00.2 Palpitations; Z79.82 Long term (current) use of aspirin; Z79.899 Other long term (current) drug therapy; Z3A.27 27 weeks gestation of pregnancy
CPT/HCPCS: 36415; 80053; 81003; 83735; 84443; 84484; 85025; 93005; 93010; 93970; 93970-26; 99283; 99285-25

== ENCOUNTER 2021-07-31 00:48 | Inpatient (IN) | payer BC ==
[2021-07-31] MEDS ORDERED: Ondansetron 4 MG/2 ML SDV IVPUSH PRN (11:01)
[2021-07-31] MEDS ORDERED: Sodium Chloride 0.9% 10 ML Syringe FLUSH PRN (11:01)
[2021-07-31] MEDS ORDERED: Lidocaine 1% 50 ML MDV INJECT ONE (11:01)
[2021-07-31] MEDS ORDERED: Nalbuphine 10 MG/1 ML Vial IVPUSH PRN (11:01)
[2021-07-31] MEDS ORDERED: Oxytocin/Lactated Ringers 10 UNIT/1,000 ML BAG IV SCH ×2 (11:15)
[2021-07-31] MEDS: Lactated Ringers 1,000 ML IV SCH ×4 (11:30→16:49)
[2021-07-31] MEDS ORDERED: diphenhydrAMINE 50 MG/ML SDV IVPUSH PRN (12:55)
[2021-07-31] MEDS ORDERED: ePHEDrine 50 MG/ML SDV IVPUSH PRN (12:55)
[2021-07-31] MEDS: fentaNYL 100 MCG/2 ML SDV EPIDUR PRN ×2 (14:18→19:25)
[2021-07-31] MEDS: Bupivacaine/fentaNYL/NS 100 ML Bag EPIDUR PRN ×2 (14:18→21:48)
--- NOTE | 2021-07-31 14:19 | PCM.LDHP ---
L&D History of Present Illness - General Date of Service: 07/31/21 Admit Problem/Dx: Patient Status Order with Admit Dx/Problem 07/31/21 11:02 Patient Status [ADT] Routine Admission Diagnosis/Problem Admission Diagnosis/Problem Labor without complication 07/31/21 14:06 Marilyn is a 26-year-old 2 para 1-0-0-1 female admitted on 07/31/2021 at 39-0/7 weeks gestational age with an NIMO of 08/07/2021 for induction of labor. Source of Information: Patient History Limitations: Reports: No Limitations - History of Present Illness Introduction:: Marilyn is a 26-year-old 2 para 1-0-0-1 female admitted on 07/31/2021 at 39-0/7 weeks gestational age with an NIMO of 08/07/2021 for induction of labor. She has a history of previous section that was done for nonreassuring heart tones at 38 weeks gestational age with last with induction at that time done for preeclampsia. Her scar is a little uterine transverse incision. The procedure, risk, benefits, alternatives of care including a repeat section are all discussed in detail with the patient. She appears to understand and wishes to proceed. Consent for trial of labor after section for an attempt at vaginal after section and consent for possible repeat lower uterine segment transverse section are discussed in detail with patient and are signed by the patient. Preoperative labs have been obtained. She has IV access. She is being near continuously monitored. Anesthesia and surgery partners have been made aware of her presence in L&D. 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 Patient had menarche at approximately age 13. Cycles are fairly regular. She had 1 previous that delivered on 10/24/2019 at 38-2/7 weeks gestational age6 pound 13 ounce male born via primary section under epidural analgesia. indication was intolerance of labor but diagnosis of preeclampsia was also present. Patient denies any STIs. Also denies any abnormal Pap smears. course: Patient was first seen for this on 01/05/2021 at 9-3/7 weeks gestational age. Ultrasound done at that time was consistent with dates. She has had 2 other ultrasounds since that first ultrasound both consistent with her LMP dating. NIMO is set at 08/07/2021. Patient's has been relatively unremarkable. She had regular care. First weight was 190.4 pounds and weight at last visit on 07/22/2021 was 2212.6 pounds. Her vital signs been stable throughout the and there is been no evidence of hypertension. Fundal height growth has been appropriate. Baby has been active. No problems have been noted. She is group B strep negative. Covid vaccine was given on 01/06/2021 and again on 02/03/2021. She has a history of depression but has not had any problems with this . She plans to yomaira [employer]. She is okay with epidural in labor and delivery. Risk factors for the include history of preeclampsia with first , history of C- section, history of anxiety/depression symptoms in the past. Patient had her influenza immunization on 06/18/2021. Tdap given 05/26/2021. She is rubella immune. Hepatitis A position given in 2007. Hepatitis B immunization given in 1994. Meningococcal immunization given in 2011. Laboratory testing: Blood is O+ with a negative antibody screen. First erum hemoglobin was 12.9 g/dL and platelets were 353,000. She is rubella immune. RPR is nonreactive. Urine culture was negative. Hepatitis B surface antigen and HIV assays were both negative. Chlamydia, gonorrhea and hepatitis C antibody evaluations were negative. Second trimester labs showed hemoglobin 10.6 g/dL. At that time patient was advised to start on ferrous sulfate 325 mg p.o. daily. Her platelet count at that time was 328,000. 1 hour GTT was elevated at 151. Her 3-hour glucose tolerance test was normal with fasting blood sugar 91. 1 hour glucose was 205. 2-hour glucose was 138. 3-hour glucose was 130. Group B strep screen was negative. Allergies: None Medications: 1. Vitamin D 50 mcg daily (2000 international units) 2. Baby aspirin 81 mg p.o. daily 3. Sertraline 100 mg - 2 tablets daily for dosage of 200 mg/day 4. vitamins daily 5. Folic acid caps daily 5. BuSpar 15 mg 1 tablet daily 6. Hydroxyzine 50 mg oral tablets as needed for anxiety 7. Ferrous sulfate 325 mg daily Past medical history: 1. Anxiety/depression which is manageable at this time on medications. Past surgical history: 1. LASEK surgery 2. Previous as described above in 2020 Family history: Mother is alive and prediabetic. Father is alive, with diet controlled type 2 diabetes. Also has high cholesterol. Maternal grandfather is at age 92 from diabetes complications. Maternal grandmother is at approximately 30 to 50 years of age from a brain aneurysm. Paternal grandfather secondary Parkinson's.and diabetes. Paternal grandmother secondary to stroke in her late 70s back in 2012. Patient has a half sister and a half brother that are alive and well. The sister however did have thyroid cancer in her early 30s and gestational diabetes but is doing well now. 1 paternal aunt with breast cancer. There is no family history of bleeding, clotting, anesthesia, related problems or unusual reactions to medications. She has no problems with asthma. Social history: Patient is . She lives in [place], [place]. She works at the [employer] in [place], [place]. She does not use any significance alcohol, drugs or tobacco. Her 's name is Saad. Review of systems: In general patient has no complaints. Baby has been active. P she has had no symptoms of hypertension . No signs or symptoms of preeclampsia. Skin: Negative Lungs: No infectious symptoms or shortness of breath Cardiovascular: No chest pain or exercise intolerance Breasts: No lumps, changes in size, pain, dimpling, discharge or axillary or supraclavicular concerns. GI: Negative : Body changes associated with . Musculoskeletal: Negative Neurological: Negative Physical exam: In general the patient is well-developed, well-nourished, pleasant female of stated age in no acute distress. On last evaluation clinic on 08/22/2021 her blood pressure was 123/72. Weight was 212.6 with a first weight of 190.4. heart rate was 139. Skin is warm dry without lesions. HEENT, neck and back within normal limits. Lungs are clear with good breath sounds in all lung haq. Cardiovascular exam shows regular and rhythm without murmurs. Breast exam is deferred at this time having been done at first visit thought to be normal is not repeated at this time. Abdomen is gravid with fundal height on last evaluation clinic at 39+ centimeters. Baby in vertex presentation. Genital per digital exam shows cervix to be 3 cm, 80% effaced, soft, -3, posterior. Cephalic presentation confirmed. Extremities and neurological exam are grossly within normal limits. There is minimal edema noted in bilateral lower extremities - Related Data Allergies/Adverse Reactions: Allergies Allergy/AdvReac Type Severity Reaction Status Date / Time No Known Allergies Allergy Verified 05/07/21 17:00 Home Medications: Home Meds Prenat 115/Iron Fum/Folic/Dss [ 19 Tablet] 1 tab PO DAILY 10/23/19 [History] Sertraline [Zoloft] 100 mg PO DAILY 05/07/21 [History] Cholecalciferol (Vitamin D3) [Vitamin D] 5,000 units PO DAILY 07/31/21 [History] Folic Acid 0.8 mg PO DAILY 07/31/21 [History] Past Medical History - Past Health History Medical/Surgical History: Denies Medical/Surgical History Other Respiratory History: currrent stuffy nose 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 Psychiatric History: Reports: Depression - Past Surgical History HEENT Surgical History: Reports: ALAN Other HEENT Surgeries/Procedures: 2018 Female Surgical History: Reports: Section Social & Family History - Family History Family Medical History: No Pertinent Family History - Tobacco Use Tobacco Use Status *Q: Never Tobacco User - Caffeine Use Caffeine Use: Reports: None - Recreational Drug Use Recreational Drug Use: No H&P Review of Systems - Review of Systems: Review Of Systems: See Below L&D Exam - Exam Exam: See Below - Vital Signs Vital Signs: Last Vital Signs Temp 36.7 C 07/31/21 11:02 Pulse 109 H 07/31/21 11:02 Resp 18 07/31/21 11:02 BP 112/59 L 07/31/21 11:02 Pulse Ox 98 07/31/21 11:02 Weight: 97.069 kg - Patient Data Lab Results Last 24 hrs: Laboratory Results - last 24 hr 07/31/21 07/31/21 07/31/21 Range/Units 10:55 11:20 11:20 WBC 8.60 (3.98-10.04) K/mm3 RBC 5.04 (3.98-5.22) M/mm3 Hgb 13.4 D (11.2-15.7) gm/dl Hct 41.3 (34.1-44.9) % MCV 81.9 D (79.4-94.8) fl MCH 26.6 (25.6-32.2) pg MCHC 32.4 (32.2-35.5) g/dl RDW Std Deviation 52.5 H (36.4-46.3) fL Plt Count 235 D (182-369) K/mm3 MPV 11.1 (9.4-12.3) fl SARS-CoV-2 RNA (ALFREDO) Negative (NEGATIVE) Blood Type O POSITIVE Gel Antibody Screen Negative Result Diagrams: 07/31/21 11:20 - Problem List (1) Previous section SNOMED Code(s): 110233801 ICD Code: Z98.891 - HISTORY OF UTERINE SCAR FROM PREVIOUS SURGERY Status: Acute Current Visit: Yes (2) 39 weeks gestation of SNOMED Code(s): 71782410 ICD Code: Z3A.39 - 39 WEEKS GESTATION OF Status: Acute Current Visit: Yes (3) Depression affecting SNOMED Code(s): 78393047226217 ICD Code: O99.340 - OTH MENTAL DISORDERS COMPLICATING , UNSP TRIMESTER; F32.A - DEPRESSION, UNSPECIFIED Status: Acute Current Visit: Yes Problem List Initiated/Reviewed/Updated: Yes Orders Last 24hrs: Active Orders 24 hr Category Date Time Status Patient Status [ADT] Routine ADT 07/31/21 11:02 Active Activity as Tolerated [RC] PFP Care 07/31/21 11:02 Active Communication Order [RC] ASDIRECTED Care 07/31/21 11:02 Active Communication Order [RC] ASDIRECTED Care 07/31/21 12:56 Active Cooling Warming Measures [RC] ASDIRECTED Care 07/31/21 12:56 Active Heart Tones [RC] ASDIRECTED Care 07/31/21 11:03 Active Non Stress Test [RC] PER UNIT ROUTINE Care 07/31/21 11:02 Active Notify Provider [RC] ASDIRECTED Care 07/31/21 12:55 Active Notify Provider [RC] ASDIRECTED Care 07/31/21 12:56 Active Notify Provider [RC] PFP Care 07/31/21 11:02 Active Notify Provider [RC] PRN Care 07/31/21 11:02 Active Oxygen Therapy [RC] ASDIRECTED Care 07/31/21 12:56 Active Peripheral IV Care [RC] . DIRECTED Care 07/31/21 11:03 Active Pulse Oximetry [RC] ASDIRECTED Care 07/31/21 12:56 Active Vital Signs [RC] PER UNIT ROUTINE Care 07/31/21 11:02 Active Vital Signs [RC] Q1H Care 07/31/21 12:56 Active Regular Diet [DIET] Diet 07/31/21 Lunch Active RAPID PLASMA REAGIN,RPR [CHEM] Routine Lab 07/31/21 11:20 Received Bupivacaine/fentaNYL/NS [fentaNYL/Bupivacaine/NS 2 MCG- Med 07/31/21 12:55 Active 0.125% 100 ML] 100 ml EPIDUR ASDIRECTED PRN Lactated Ringers [Ringers, Lactated] 1,000 ml Med 07/31/21 11:15 Active IV ASDIRECTED Nalbuphine [Nubain] Med 07/31/21 11:01 Active 10 mg IVPUSH Q2H PRN Ondansetron [Zofran] Med 07/31/21 11:01 Active 4 mg IVPUSH Q4H PRN Oxytocin/Lactated Ringers [Pitocin in LR 10 Units/1,000 Med 07/31/21 11:15 Active ML] 10 unit in 1,000 ml IV .CONTINUOUS Oxytocin/Lactated Ringers [Pitocin in LR 10 Units/1,000 Med 07/31/21 11:15 Active ML] 10 unit in 1,000 ml IV TITRATE Sodium Chloride 0.9% [Saline Flush] Med 07/31/21 11:01 Active 10 ml FLUSH ASDIRECTED PRN diphenhydrAMINE [Benadryl] Med 07/31/21 12:55 Active 25 mg IVPUSH Q6H PRN ePHEDrine [ePHEDrine sulfate] Med 07/31/21 12:55 Active 5 mg IVPUSH ASDIRECTED PRN fentaNYL [Sublimaze] Med 07/31/21 12:55 Active 100 mcg EPIDUR Q3H PRN Electronic Heart Tones Ext w TOCO [WOMSER] Oth 07/31/21 11:02 Ordered Routine Electronic Heart Tones Internal [WOMSER] Per Unit Oth 07/31/21 11:02 Ordered Routine Peripheral IV Insertion Adult [OM.PC] Routine Oth 07/31/21 11:02 Ordered Resuscitation Status Routine Resus Stat 07/31/21 11:01 Ordered Medication Orders Diphenhydramine HCl (Diphenhydramine 50 Mg/Ml Sdv) 25 mg IVPUSH Q6H PRN PRN Reason: pruritis Ephedrine Sulfate (Ephedrine 50 Mg/Ml Sdv) 5 mg IVPUSH ASDIRECTED PRN PRN Reason: Hypotension Fentanyl (Fentanyl 100 Mcg/2 Ml Sdv) 100 mcg EPIDUR Q3H PRN PRN Reason: Pain Fentanyl/Bupivacaine HCl (Bupivacaine/Fentanyl/Ns 100 Ml Bag) 100 ml EPIDUR ASDIRECTED PRN PRN Reason: Pain Oxytocin/Lactated Ringer's (Pitocin In Lr 10 Units/1,000 Ml) 10 unit in 1,000 mls @ 12 mls/hr IV TITRATE FAITH; Protocol Last Titration: 07/31/21 13:40 Dose: 2 munits/min, 12 mls/hr Documented by: Titration: 07/31/21 12:00 Dose: 4 munits/min, 24 mls/hr Documented by: Admin: 07/31/21 11:34 Dose: 2 munits/min, 12 mls/hr Documented by: JEWEL Oxytocin/Lactated Ringer's (Pitocin In Lr 10 Units/1,000 Ml) 10 unit in 1,000 mls @ 500 mls/hr IV .CONTINUOUS FAITH Lactated Ringer's (Ringers, Lactated) 1,000 mls @ 100 mls/hr IV ASDIRECTED FAITH Last Admin: 07/31/21 13:37 Dose: 100 mls/hr Documented by: Infusion: 07/31/21 13:37 Dose: 100 mls/hr Documented by: Admin: 07/31/21 11:30 Dose: 100 mls/hr Documented by: JEWEL Nalbuphine HCl (Nalbuphine 10 Mg/1 Ml Vial) 10 mg IVPUSH Q2H PRN PRN Reason: Pain Ondansetron HCl (Ondansetron 4 Mg/2 Ml Sdv) 4 mg IVPUSH Q4H PRN PRN Reason: Nausea/Vomiting Sodium Chloride (Sodium Chloride 0.9% 10 Ml Syringe) 10 ml FLUSH ASDIRECTED PRN PRN Reason: Keep Vein Open Assessment/Plan Comment:: 1. Marilyn is a 26-year-old 2 para 1-0-0-1 female admitted on 07/31/2021 at 39-0/7 weeks gestational age with an NIMO of 08/07/2021 for induction of labor. 2. Group B strep screen negative 3. Risk factors for the include: History of previous section for nonreassuring heart tones, obesity, history of preeclampsia first p regnancy, history of depression and anxietycontrolled with meds. 4. Patient plans to bottlefeed 5. Patient okay with epidural anticipate . Patient is up-to-date regarding her immunizations. 6. Patient did dilate to 8 cm with her last before nonreassuring heart tones caused her to have a . Plan: 1. Induction of labor with Pitocin initially with AROM as indicated 2. TOLAC/ precautions have been taken including consent for and for trial of labor after section for an attempt at vaginal after section, labs, near continuous heart rate monitoring, IV access, discussion was held with patient and her concerning risks, benefits of TOLAC for versus repeat , anesthesia and surgery depa rtment made aware of patient's presence in L&D. 3. Admission labs: CBC, type and screen, Covid testing, ER per protocol. 4. Epidural as needed 5. Support patient is bottlefeeding plans. 6. Anticipate .
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
--- NOTE | 2021-07-31 19:24 | PCM.SN.2 ---
- Free Text/Narrative Note: 1900 called to room 30 for c/o pain 7/10 in bladder area bolus epidural with 2ml of fentanyl and 6ml of 0.25% Bupivicaine reposition in bed sitting up at 45 degrees. Epidural level at T6 out of room at 1930. Time Documentation
[2021-07-31] MEDS ORDERED: Ampicillin 2 GM in Sodium Chloride 0.9% 100 ML IV SCH (20:30)
[2021-07-31] MEDS ORDERED: Acetaminophen 325 MG Tab PO ONE (21:02)
[2021-08-01] MEDS ORDERED: Ampicillin 1 GM in Sodium Chloride 0.9% 100 ML IV SCH (01:15)
--- NOTE | 2021-08-01 01:29 | PCM.SN.2 ---
- Free Text/Narrative Note: Delivery note: Stage I: Marilyn is a 26-year-old 2 para 1-0-0-1 female admitted on 07/31/2021 at 39-0/7 weeks gestational age with an NIMO of 08/07/2021 for induction of labor. She underwent induction of labor with Pitocin per protocol. Shortly into the the induction AROM was accomplished with resultant clear a mniotic fluid. She then steadily progressed into an enhanced labor pattern and Pitocin was eventually discontinued. She made steady but slow progress. She stalled for short period time at 7 cm an IUPC was placed along with scalp electrode because of difficulty monitoring heart rate. Contraction pattern was noted to be robust and patient achieved complete cervical dilation at approximately 2100 hrs. She had an epidural placed for labor analgesia which worked reasonably well with exception of a hotspot in the area of her right hip. heart tones were generally reassuring although was some variable decelerations were noted. heart rate variability was good throughout the labor course. Stage II: Marilyn delivered a viable, cerda, female with Apgars of 4/ 6/ 8 at 0048 hours on 08/01/2021 via vacuum extraction delivery. Vacuum extraction had been discussed with the patient and her including the procedure, risk, benefits, alternatives of care including section. They wish to proceed. VAC extraction was unremarkable with the exception of a pop off of the cup as the had exited from the vagina. Baby delivered in 2 contractions. The head delivered in a direct occiput anterior position after rotating from a right occiput posterior position with the vacuum extraction delivery. The shoulders delivered easily with gentle downward and upward traction. He was placed on mom's abdomen for short period time. The cord was clamped x2 and cut and the baby was taken to the warmer for further evaluation. Nose and mouth were bulb suction. She me know that Pitocin was increased to 500 cc an hour to facilitate increase in uterine tone and decrease likelihood of bleeding. Umbilical cord had 3 vessels. Cord blood was obtained. A small bi- sulcus vagina l laceration was repaired with 3-0 Monocryl in a routine fashion using epidural analgesia for vaginal and perineal laceration anesthesia. Patient tolerated this repair reasonably well. The lacerations were repaired after delivery of the placenta. The baby weighed 3220 g (7 pounds 1.6 ounces) and had a length of 19.0 inches. Stage III: The placenta delivered in a Benito presentation at 0054 hours. It appeared intact and complete and was discarded per patient desire. Patient is undecided as to whether to breast-feed or not as she had difficulty with her last delivery. Estimated blood loss was 200 cc. Condition: Good Time Documentation
[2021-08-01] MEDS ORDERED: Witch Hazel Medicated Pads 40/Jar TOP PRN (01:51)
[2021-08-01] MEDS ORDERED: Benzocaine/Menthol 20%-0.5% Spray 78 GM Cannister TOP PRN (01:51)
[2021-08-01] MEDS ORDERED: Acetaminophen 325 MG Tab PO PRN (01:51)
[2021-08-01] MEDS ORDERED: Docusate Sodium 100 MG Cap PO PRN (01:51)
[2021-08-01] MEDS ORDERED: Ibuprofen 600 MG Tab PO PRN (01:51)
[2021-08-01] MEDS ORDERED: ePHEDrine 50 MG/ML SDV ONE (06:00)
[2021-08-01] MEDS ORDERED: Bupivacaine 0.25% 10 ML SDV ONE (06:00)
--- NOTE | 2021-08-01 06:33 | PCM48HPAN ---
Post Anesthesia Note - EVALUATION WITHIN 48HRS OF ANESTHETIC Vital Signs in Normal Range: Yes Patient Participated in Evaluation: Yes Respiratory Function Stable: Yes Airway Patent: Yes Cardiovascular Function Stable: Yes Hydration Status Stable: Yes Pain Control Satisfactory: Yes Nausea and Vomiting Control Satisfactory: Yes Mental Status Recovered: Yes Vital Signs: Last Vital Signs Temp 37.1 C 07/31/21 22:30 Pulse 109 H 07/31/21 11:02 Resp 18 07/31/21 11:02 BP 112/59 L 07/31/21 11:02 Pulse Ox 98 07/31/21 11:02 - COMMENTS/OBSERVATIONS Free Text/Narrative:: no anesthesia complications noted
[2021-08-01] MEDS: Prenatal Multivitamin with Calcium/Folic Acid/Iron Tab PO SCH (08:23)
[2021-08-01] MEDS: Sertraline 50 MG Tab PO SCH (08:23)
--- NOTE | 2021-08-01 09:33 | PCM.SN.2 ---
- Free Text/Narrative Note: note: Day of delivery. Patient is doing well in the period. Minimal lochia, voiding well, ambulated without problems. Nursing without concerns. Baby is admitted to level 2 nursery because of infection signs/symptoms. Is on antibiotics but doing well. Patient is afebrile, vital signs are stable Abdomen is flat, soft, uterus is below the umbilicus and is firm and nontender. Legs are nontender. Assessment: recovery going well. Plan: Routine care. Patient be discharged home within the next 24-48 hours. Time Documentation
[2021-08-02] MEDS: Sertraline 50 MG Tab PO SCH (07:58)
[2021-08-02] MEDS: Prenatal Multivitamin with Calcium/Folic Acid/Iron Tab PO SCH (07:58)
--- NOTE | 2021-08-02 10:46 | PCM.DCSUM1 ---
Discharge Summary - Hospital Course Free Text/Narrative:: Marilyn was admitted on 07/31/2021 for induction of labor. She had a previous history of section done for nonreassuring heart tones. With that labor she had progressed to 8 cm. The process and procedure of labor and delivery, its risks, benefits, preparatory factors included in labor and alternatives of care including allowing for natural onset of labor all discussed with patient. She appeared to understand and wished to proceed. Stage I: Marilyn is a 26-year-old 2 para 1-0-0-1 female admitted on 07/31/2021 at 39-0/7 weeks gestational age with an NIMO of 08/07/2021 for induction of labor. She underwent induction of labor with Pitocin per protocol. Shortly into the the induction AROM was accomplished with resultant clear amniotic fluid. She then steadily progressed into an enhanced labor pattern and Pitocin was eventually discontinued. She made steady but slow progress. She stalled for short period time at 7 cm an IUPC was placed along with scalp electrode because of difficulty monitoring heart rate. Contraction pattern was noted to be robust and patient achieved complete cervical dilation at approximately 2100 hrs. She had an epidural placed for labor analgesia which worked reasonably well with exception of a hotspot in the area of her right hip. heart tones were generally reassuring although was some variable decelerations were noted. heart rate variability was good throughout the labor course. Stage II: Marilyn delivered a viable, cerda, female with Apgars of 4/ 6/ 8 at 0048 hours on 08/01/2021 via vacuum extraction delivery. Vacuum extraction had been discussed with the patient and her including the procedure, risk, benefits, alternatives of care including section. They wish to proceed. VAC extraction was unremarkable with the exception of a pop off of the cup as the had exited from the vagina. Baby delivered in 2 contractions. The head delivered in a direct occiput anterior position after rotating from a right occiput posterior position with the vacuum extraction delivery. The shoulders delivered easily with gentle downward and upward traction. He was placed on mom's abdomen for short period time. The cord was clamped x2 and cut and the baby was taken to the warmer for further evaluation. Nose and mouth were bulb suction. She me know that Pitocin was increased to 500 cc an hour to facilitate increase in uterine tone and decrease likelihood of bleeding. Umbilical cord had 3 vessels. Cord blood was obtained. A small bi- sulcus vaginal laceration was repaired with 3-0 Monocryl in a routine fashion using epidural analgesia for vaginal and perineal laceration anesthesia. Patient tolerated this repair reasonably well. The lacerations were repaired after delivery of the placenta. The baby weighed 3220 g (7 pounds 1.6 ounces) and had a length of 19.0 inches. Stage III: The placenta delivered in a Benito presentation at 0054 hours. It appeared intact and complete and was discarded per patient desire. Patient is undecided as to whether to breast-feed or not as she had difficulty with her last delivery. Estimated blood loss was 200 cc. patient is done very well. She has minimal lochia, is voiding well. She is bottlefeeding. Vital signs have been stable. She is desiring discharge home. Her baby is in level 2 due to some infectious signs/symptoms and is on antibiotics but is improving. Discharge instructions have been given. Condition: Good Diagnosis: Stroke: No - Discharge Data Discharge Date: 08/02/21 Discharge Disposition: Home, Self-Care 01 Condition: Good - Referral to Home Health Primary Care Physician: Calista Eason NP - Discharge Diagnosis/Problem(s) (1) Previous section SNOMED Code(s): 633226310 ICD Code: Z98.891 - HISTORY OF UTERINE SCAR FROM PREVIOUS SURGERY Status: Acute Current Visit: Yes (2) 39 weeks gestation of SNOMED Code(s): 24491122 ICD Code: Z3A.39 - 39 WEEKS GESTATION OF Status: Acute Current Visit: Yes (3) Depression affecting SNOMED Code(s): 36679867479308 ICD Code: O99.340 - OT MENTAL DISORDERS COMPLICATING , UNSP TRIMESTER; F32.A - DEPRESSION, UNSPECIFIED Status: Acute Current Visit: Yes - Patient Instructions Diet: Regular Diet as Tolerated Activity: As Tolerated (No intercourse or tampons until bleeding resolves.) Driving: May Drive Today Showering/Bathing: May Shower (May take a bath) - Discharge Plan Home Medications: Home Meds Prenat 115/Iron Fum/Folic/Dss [ 19 Tablet] 1 tab PO DAILY 10/23/19 [History] Cholecalciferol (Vitamin D3) [Vitamin D] 5,000 units PO DAILY 10/29/21 [History] Acetaminophen [Tylenol] 650 mg PO Q4H PRN tablet 08/02/21 [Rx] Ibuprofen [Motrin] 600 mg PO Q4H PRN tablet 08/02/21 [Rx] Sertraline [Zoloft] 100 mg PO DAILY tablet 08/02/21 [Rx] Patient Handouts: Baby Blues, Care After Vaginal Delivery Referrals: Anshul Saleh MD [Physician] - (Return to clinic[facility]. [facility]-3 weeks.) - Discharge Summary/Plan Comment DC Time >30 min.: No Total # of Minutes for Discharge Time: 10 Discharge Summary/Plan Comment: Discharge instructions: 1. Discharge home 2. Diet, activity and follow-up discussed with patient. Recommend nursing diet with increased calories and calcium. 3. Precautions given concern increased pain, bleeding, temperature, signs/symptoms of DVT/PE. 4. Medications per home medication was printed, discussed with and given to the patient. 5. Return to clinic-Dr. Saleh[facility] in 2-3 weeks. Diagnosis: 1. Term -delivered via 2. Baby still in level 2 nursery but doing well. Condition: Good - Patient Data Vitals - Most Recent: Last Vital Signs Temp 36.9 C 08/02/21 07:33 Pulse 84 08/02/21 07:33 Resp 20 08/02/21 07:33 BP 112/58 L 08/02/21 07:33 Pulse Ox 94 L 08/02/21 07:33 Weight - Most Recent: 97.069 kg Med Orders - Current: Current Medications Acetaminophen (Acetaminophen 325 Mg Tab) 650 mg PO Q4H PRN PRN Reason: mild pain or fever Benzocaine/Menthol (Benzocaine/Menthol 20%-0.5% Cassandra 78 Gm Cannister) 0 gm TOP ASDIRECTED PRN PRN Reason: Perineal Comfort Measure Last Admin: 08/01/21 05:14 Dose: 1 can Documented by: Docusate Sodium (Docusate Sodium 100 Mg Cap) 100 mg PO BID PRN PRN Reason: Constipation Ibuprofen (Ibuprofen 600 Mg Tab) 600 mg PO Q4H PRN PRN Reason: Mild pain or fever Last Admin: 08/01/21 05:14 Dose: 600 mg Documented by: Prenat Multivit/[place]/Iron/Folic Ac ( Multivitamin With Calcium/Folic Acid/Iron Tab) 1 each PO DAILY FAITH Last Admin: 08/02/21 07:58 Dose: 1 each Documented by: Sertraline HCl (Sertraline 50 Mg Tab) 100 mg PO DAILY FAITH Last Admin: 08/02/21 07:58 Dose: 100 mg Documented by: Franchesca Bauer (Franchesca Bauer Medicated Pads 40/Jar) 1 pad TOP ASDIRECTED PRN PRN Reason: Perineal Comfort Measure Last Admin: 08/01/21 05:14 Dose: 1 tub Documented by: Discontinued Medications Acetaminophen (Acetaminophen 325 Mg Tab) 650 mg PO NOW ONE Stop: 07/31/21 21:03 Last Admin: 07/31/21 21:30 Dose: 650 mg Documented by: Diphenhydramine HCl (Diphenhydramine 50 Mg/Ml Sdv) 25 mg IVPUSH Q6H PRN PRN Reason: pruritis Ephedrine Sulfate (Ephedrine 50 Mg/Ml Sdv) 5 mg IVPUSH ASDIRECTED PRN PRN Reason: Hypotension Last Admin: 07/31/21 15:02 Dose: 5 mg Documented by: Fentanyl (Fentanyl 100 Mcg/2 Ml Sdv) 100 mcg EPIDUR Q3H PRN PRN Reason: Pain Last Admin: 07/31/21 19:25 Dose: 100 mcg Documented by: Fentanyl/Bupivacaine HCl (Bupivacaine/Fentanyl/Ns 100 Ml Bag) 100 ml EPIDUR ASDIRECTED PRN PRN Reason: Pain Last Admin: 07/31/21 21:48 Dose: 100 ml Documented by: Oxytocin/Lactated Ringer's (Pitocin In Lr 10 Units/1,000 Ml) 10 unit in 1,000 mls @ 12 mls/hr IV TITRATE FAITH; Protocol Last Titration: 07/31/21 16:00 Dose: 2 munits/min, 12 mls/hr Documented by: Oxytocin/Lactated Ringer's (Pitocin In Lr 10 Units/1,000 Ml) 10 unit in 1,000 mls @ 500 mls/hr IV .CONTINUOUS FAITH Lactated Ringer's (Ringers, Lactated) 1,000 mls @ 100 mls/hr IV ASDIRECTED FAITH Last Admin: 07/31/21 16:49 Dose: 100 mls/hr Documented by: Ampicillin Sodium 2 gm/ Sodium (Chloride) 100 mls @ 200 mls/hr IV Q4H [facility] Last Admin: 07/31/21 21:17 Dose: 200 mls/hr Documented by: Ampicillin Sodium 1 gm/ Sodium (Chloride) 100 mls @ 200 mls/hr IV Q4H [facility] Last Admin: 08/01/21 02:00 Dose: Not Given Documented by: Lidocaine HCl (Lidocaine 1% 50 Ml Mdv) 50 ml INJECT ONETIME ONE Stop: 07/31/21 11:02 Last Admin: 08/01/21 01:49 Dose: Not Given Documented by: Nalbuphine HCl (Nalbuphine 10 Mg/1 Ml Vial) 10 mg IVPUSH Q2H PRN PRN Reason: Pain Last Admin: 07/31/21 21:00 Dose: 10 mg Documented by: Ondansetron HCl (Ondansetron 4 Mg/2 Ml Sdv) 4 mg IVPUSH Q4H PRN PRN Reason: Nausea/Vomiting Sodium Chloride (Sodium Chloride 0.9% 10 Ml Syringe) 10 ml FLUSH ASDIRECTED PRN PRN Reason: Keep Vein Open
== END 2021-08-02 11:09 | disposition home or self-care (01) | DRG 560 ==
LOC: JD.OB 00:48 → OBSVTOIN 08-01 00:48 → JD.OB 08-01 00:49
PROVIDERS: ADMIT Obstetrics & Gynecology; ATTEND Obstetrics & Gynecology
PROC: 10D07Z6 Extraction of Products of Conception, Vacuum, Via Natural or Artificial Opening (ICD-10-PCS; principal; 2021-08-01)
PROC: 10907ZC Drainage of Amniotic Fluid, Therapeutic from Products of Conception, Via Natural or Artificial Opening (ICD-10-PCS; 2021-08-01)
PROC: 3E0P7VZ Introduction of Hormone into Female Reproductive, Via Natural or Artificial Opening (ICD-10-PCS; 2021-08-01)
PROC: 0HQ9XZZ Repair Perineum Skin, External Approach (ICD-10-PCS; 2021-08-01)
PROC: 0UQGXZZ Repair Vagina, External Approach (ICD-10-PCS; 2021-08-01)
PROC: 10H07YZ Insertion of Other Device into Products of Conception, Via Natural or Artificial Opening (ICD-10-PCS; 2021-08-01)
PROC: 3E0R3BZ Introduction of Anesthetic Agent into Spinal Canal, Percutaneous Approach (ICD-10-PCS; 2021-08-01)
DX: O34.211 Maternal care for low transverse scar from previous cesarean delivery (principal); Z20.822 Contact with and (suspected) exposure to COVID-19; Z37.0 Single live birth; Z3A.39 39 weeks gestation of pregnancy; O99.62 Diseases of the digestive system complicating childbirth; K21.9 Gastro-esophageal reflux disease without esophagitis; O99.344 Other mental disorders complicating childbirth; F32.A Depression, unspecified
CPT/HCPCS: 36415; 51701; 51702; 59025; 59409; 85027; 86592; 86850; 86900; 86901; A9270-GY; J0290; J2300; J2590; J3010; J3490; J7120; U0002